=== PATIENT | male | born 1985 | race Caucasian/White ===

== ENCOUNTER 2017-01-02 19:28 | Emergency (ER) | payer MEDICAID ==
[~2017-01-02 19:28] MED LIST: Sodium Bicarbonate 8.4% 50 MEQ/50 ML Syringe ONE
[2017-01-02 19:38] VITALS: BP 143/100
[2017-01-02] MEDS ORDERED: Sodium Chloride 0.9% 10 ML Syringe FLUSH PRN (19:38)
[2017-01-02] MEDS ORDERED: Sodium Chloride 0.9% 1,000 ML IV SCH ×2 (19:45→21:15)
[2017-01-02] MEDS ORDERED: Sodium Chloride 0.9% 1,000 ML IV ONE (21:17)
--- NOTE | 2017-01-02 21:55 | EDM.PDOC ---
ED HPI GENERAL MEDICAL PROBLEM - General Chief Complaint: Drug or Alcohol Abuse Stated Complaint: [facility] Time Seen by Provider: 01/02/17 19:37 Source of Information: Reports: Patient, EMS History Limitations: Reports: No Limitations - History of Present Illness INITIAL COMMENTS - FREE TEXT/NARRATIVE: The patient presents by ambulance for heroin overdose. The patient usually uses methamphetamine. Tonight his roommate said he had both and he went unconscious and stopped breathing. His roommate called 911 and was directed to start CPR. Police arrived and found him to be apneic and not responding. They continued CPR, put him on the AED, and administered 3 doses of 4mg of narcan. He started moaning and had some gurgling respirations. When EMS got there, they established an IV and gave him 2 more doses of 2mg of narcan for a total of 4mg. He was awake and alert. He was tired when he arrived here and he had pain to his chest and upper back. He does not remember what he did or what happened. He says he usually does just meth. He has no other health problems. He has never overdosed like this before. Onset: Sudden Duration: Minutes: Location: Reports: Chest, Back Quality: Reports: Sharp Severity: Moderate Improves with: Reports: None Worsens with: Reports: Movement Context: Reports: Activity (He had a heroin overdose) Associated Symptoms: Reports: Chest Pain. Denies: Cough, Fever/Chills, Headaches, Nausea/Vomiting, Shortness of Breath Treatments CUSTOMS AGENT: Reports: CPR, IV/IO, Oxygen, Other (see below) Other Treatments CUSTOMS AGENT: narcan Chest Pain Score (Numeric/FACES): 10 - Related Data Allergies Allergy/AdvReac Type Severity Reaction Status Date / Time No Known Allergies Allergy Verified 01/02/17 19:38 Home Meds: Home Meds . [No Known Home Meds] 01/02/17 [History] Past Medical History - Past Health History Medical/Surgical History: Denies Medical/Surgical History Other Cardiovascular History: WPW Psychiatric History: Reports: Addiction, Antisocial Behaviors Social & Family History - Tobacco Use Smoking Status *Q: Never Smoker - Recreational Drug Use Recreational Drug Type: Reports: Heroin, Methamphetamine Recreational Drug Use Frequency: Daily ED ROS GENERAL - Review of Systems Review Of Systems: See Below Constitutional: Reports: No Symptoms HEENT: Reports: No Symptoms Respiratory: Reports: No Symptoms Cardiovascular: Reports: Chest Pain Endocrine: Reports: No Symptoms GI/Abdominal: Reports: No Symptoms : Reports: No Symptoms Musculoskeletal: Reports: Back Pain Skin: Reports: No Symptoms Neurological: Reports: No Symptoms - Physical Exam Exam: See Below Exam Limited By: No Limitations General Appearance: Alert, No Apparent Distress Ears: Normal External Exam Nose: Normal Inspection Head Exam: Atraumatic, Normocephalic Neck: Normal Inspection Respiratory/Chest: No Respiratory Distress, Lungs Clear, Normal Breath Sounds Cardiovascular: Regular Rate, Rhythm, No Edema, No Murmur, Other (Pain upon palpation to his anterior chest) GI/Abdominal: Soft, Non-Tender, No Organomegaly, No Mass Neuro Exam (Abbreviated): Alert, Oriented, No Motor/Sensory Deficits EKG INTERPRETATION EKG Date: 01/02/17 Time: 19:38 Rhythm: Other (Sinus tachycardia) Rate (Beats/Min): 100 [place]: Normal P-Wave: Present QRS: Normal ST-T: Normal QT: Normal Course - Vital Signs Last Recorded V/S: Last Vital Signs Temp 98.3 F 01/02/17 19:33 Pulse 102 H 01/02/17 19:33 Resp 19 01/02/17 19:33 BP 143/100 H 01/02/17 19:33 Pulse Ox 100 01/02/17 19:33 - Orders/Labs/Meds Orders: Active Orders 24 hr Category Date Time Status Cardiac Monitoring [RC] . DIRECTED Care 01/02/17 19:38 Active EKG Documentation Completion [RC] STAT Care 01/02/17 19:38 Active Peripheral IV Care [RC] . DIRECTED Care 01/02/17 19:38 Active Chest 1V Frontal [CR] Stat Exams 01/02/17 19:39 Taken Sodium Chloride 0.9% [Normal Saline] 1,000 ml Med 01/02/17 19:45 Active IV .BOLUS Sodium Chloride 0.9% [Normal Saline] 1,000 ml Med 01/02/17 21:15 Active IV ASDIRECTED Sodium Chloride 0.9% [Normal Saline] 1,000 ml Med 01/02/17 21:17 Active IV ONETIME Sodium Chloride 0.9% [Saline Flush] Med 01/02/17 19:38 Active 10 ml FLUSH ASDIRECTED PRN Peripheral IV Insertion Adult [OM.PC] Stat Oth 01/02/17 19:38 Ordered Medication Orders Sodium Chloride (Normal Saline) 1,000 mls @ 1,000 mls/hr IV .BOLUS MICHA Last Admin: 01/02/17 19:45 Dose: 1,000 mls/hr Sodium Chloride (Normal Saline) 1,000 mls @ 150 mls/hr IV ASDIRECTED MICHA Sodium Chloride (Normal Saline) 1,000 mls @ 150 mls/hr IV ONETIME ONE Stop: 01/03/17 03:56 Last Admin: 01/02/17 21:28 Dose: 150 mls/hr Sodium Chloride (Saline Flush) 10 ml FLUSH ASDIRECTED PRN PRN Reason: Keep Vein Open Last Admin: 01/02/17 19:46 Dose: 10 ml Labs: Laboratory Tests 01/02/17 01/02/17 01/02/17 Range/Units 19:50 19:50 21:30 WBC 8.44 (4.23-9.07) K/mm3 RBC 4.70 (4.63-6.08) M/mm3 Hgb 15.1 (13.7-17.5) gm/L Hct 42.7 (40.1-51.0) % MCV 90.9 (79.0-92.2) fl MCH 32.1 (25.7-32.2) pg MCHC 35.4 (32.2-35.5) g/dl RDW Std Deviation 42.8 (35.1-43.9) fL Plt Count 180 (163-337) K/mm3 MPV 12.1 (9.4-12.3) fl Neut % (Auto) 61.6 (34.0-67.9) % Lymph % (Auto) 25.1 (21.8-53.1) % [place] % (Auto) 9.0 (5.3-12.2) % Eos % (Auto) 3.2 (0.8-7.0) Baso % (Auto) 0.5 (0.1-1.2) % Neut # (Auto) 5.20 (1.78-5.38) K/mm3 Lymph # (Auto) 2.12 (1.32-3.57) K/mm3 [place] # (Auto) 0.76 (0.30-0.82) K/mm3 Eos # (Auto) 0.27 (0.04-0.54) K/mm3 Baso # (Auto) 0.04 (0.01-0.08) K/mm3 Sodium 142 (136-145) mEq/L Potassium 3.7 (3.5-5.1) mEq/L Chloride 104 (98-107) mEq/L Carbon Dioxide 33 H (21-32) mEq/L Anion Gap 8.7 (5-15) BUN 13 (7-18) mg/dL Creatinine 1.4 H (0.7-1.3) mg/dL Est Cr Clr Drug Dosing 73.57 mL/min Estimated GFR (MDRD) 59 (>60) mL/min BUN/Creatinine Ratio 9.3 L (14-18) Glucose 123 H (74-106) mg/dL Calcium 9.3 (8.5-10.1) mg/dL Total Bilirubin 0.6 (0.2-1.0) mg/dL AST 26 (15-37) U/L ALT 50 (16-63) U/L Alkaline Phosphatase 59 (46-116) U/L Troponin I < 0.017 (0.00-0.056) ng/mL Total Protein 7.2 (6.4-8.2) g/dl Albumin 3.9 (3.4-5.0) g/dl Globulin 3.3 gm/dL Albumin/Globulin Ratio 1.2 (1-2) Urine Opiates Screen Negative (NEGATIVE) Ur Buprenorphine Scrn Negative (NEGATIVE) Ur Oxycodone Screen Negative (NEGATIVE) Urine Methadone Screen Negative (NEGATIVE) Ur Propoxyphene Screen Negative (NEGATIVE) Ur Barbiturates Screen Negative (NEGATIVE) Ur Tricyclics Screen Negative (NEGATIVE) Ur Phencyclidine Scrn Negative (NEGATIVE) Ur Amphetamine Screen Presumptive positive H (NEGATIVE) U Methamphetamines Scrn Negative (NEGATIVE) U Benzodiazepines Scrn Negative (NEGATIVE) U Cocaine Metab Screen Negative (NEGATIVE) U Marijuana (THC) Screen Negative (NEGATIVE) Ethyl Alcohol 0.00 (0.00) gm% Meds: Medications Generic Name Dose Route Start Last Admin Trade Name Freq PRN Reason Stop Dose Admin Sodium Chloride 1,000 mls @ 1,000 mls/hr 01/02/17 19:45 01/02/17 19:45 Normal Saline IV 1,000 mls/hr .BOLUS MICHA Administration Sodium Chloride 1,000 mls @ 150 mls/hr 01/02/17 21:15 Normal Saline IV ASDIRECTED MICHA Sodium Chloride 1,000 mls @ 150 mls/hr 01/02/17 21:17 01/02/17 21:28 Normal Saline IV 01/03/17 03:56 150 mls/hr ONETIME ONE Administration Sodium Chloride 10 ml 01/02/17 19:38 01/02/17 19:46 Saline Flush FLUSH 10 ml ASDIRECTED PRN Administration Keep Vein Open - Re-Assessments/Exams Free Text/Narrative Re-Assessment/Exam: 01/02/17 21:58 The patient had an IV established. He was alert and orientated and answers all my questions. His oxygen saturations were in the high 90s and his respiratory rate was about 18. His EKG shows a sinus tachycardia with no acute changes. His CXR shows no fracture and no pneumo. His CBC looks good. His creatinine was a little elevated at 1.4. His UDS was presumptive positive for amphetamines. His drug alcohol was negative. I will observe him a little longer and if he can walk without help, has a respiratory rate over 12, heart rate over 50 and not hypothermic he can go. 01/02/17 22:29 He is doing good. I will get him ready to go. Departure - Departure Time of Disposition: 22:30 Disposition: Home, Self-Care 01 Condition: Good Clinical Impression: Drug abuse Opioid overdose Qualifiers: Encounter type: initial encounter Injury intent: accidental or unintentional Qualified Code(s): T40.2X1A - Poisoning by other opioids, accidental ( unintentional), initial encounter Respiratory failure Qualifiers: Chronicity: acute Respiratory failure complication: hypoxia Qualified Code(s): J96.01 - Acute respiratory failure with hypoxia - Discharge Information Referrals: PCP,None [Primary Care Provider] - Additional Instructions: Do not take heroin or any other opiods. You stopped breathing from it tonight and you could have . If you need help quiting, please call [facility] at [phone]. Please return if you have any other problems. - My Orders Last 24 Hours: My Active Orders 01/02/17 19:38 Cardiac Monitoring [RC] . DIRECTED EKG Documentation Completion [RC] STAT Peripheral IV Care [RC] . DIRECTED Sodium Chloride 0.9% [Saline Flush] 10 ml FLUSH ASDIRECTED PRN Peripheral IV Insertion Adult [OM.PC] Stat 01/02/17 19:39 Chest 1V Frontal [CR] Stat 01/02/17 19:45 Sodium Chloride 0.9% [Normal Saline] 1,000 ml IV .BOLUS 01/02/17 21:15 Sodium Chloride 0.9% [Normal Saline] 1,000 ml IV ASDIRECTED 01/02/17 21:17 Sodium Chloride 0.9% [Normal Saline] 1,000 ml IV ONETIME - Assessment/Plan Last 24 Hours: My Active Orders 01/02/17 19:38 Cardiac Monitoring [RC] . DIRECTED EKG Documentation Completion [RC] STAT Peripheral IV Care [RC] . DIRECTED Sodium Chloride 0.9% [Saline Flush] 10 ml FLUSH ASDIRECTED PRN Peripheral IV Insertion Adult [OM.PC] Stat 01/02/17 19:39 Chest 1V Frontal [CR] Stat 01/02/17 19:45 Sodium Chloride 0.9% [Normal Saline] 1,000 ml IV .BOLUS 01/02/17 21:15 Sodium Chloride 0.9% [Normal Saline] 1,000 ml IV ASDIRECTED 01/02/17 21:17 Sodium Chloride 0.9% [Normal Saline] 1,000 ml IV ONETIME
--- NOTE | 2017-01-03 08:12 | CR ---
Chest: Portable view of the chest was obtained. Comparison: No previous study. Heart size and mediastinum are normal. Lungs are clear. Bony structures are grossly intact. Impression: 1. Nothing acute is identified on portable chest x-ray. Diagnostic code #1
== END 2017-01-02 23:33 | disposition home or self-care (01) ==
LOC: MERGE 19:28 → JD.ED 19:28 → EDBD 19:28 → JD.ED 23:33
DX: T40.2X1A Poisoning by other opioids, accidental (unintentional), initial encounter (principal); J96.01 Acute respiratory failure with hypoxia
CPT/HCPCS: 36415; 71010; 80053; 80306; 84484; 85025; 93005; 96360; 96361; 99285; G0480; J7040; J7050; 99284

== ENCOUNTER 2017-01-15 10:03 | Emergency (ER) | payer BC, MEDICAID ==
[2017-01-15 10:16] VITALS: BP 128/85
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
--- NOTE | 2017-01-15 11:01 | CR ---
Chest: Two views of the chest were obtained. Comparison: No prior chest x-ray. Heart size and mediastinum are within normal limits. Lungs are clear. Bony structures shows minimal scoliosis within the spine. Impression: 1. Nothing acute is appreciated on two-view chest x-ray. Diagnostic code #2
== END 2017-01-15 11:31 | disposition home or self-care (01) ==
LOC: JD.ED 10:03
DX: R07.89 Other chest pain (principal); Z79.899 Other long term (current) drug therapy; F17.210 Nicotine dependence, cigarettes, uncomplicated
CPT/HCPCS: 71020; 71020-26; 93005; 99284; 99285-25